=== PATIENT | male | born 1990 | race Caucasian/White ===

== ENCOUNTER 2016-11-24 07:45 | Emergency (ER) | payer BC ==
[2016-11-24 08:01] VITALS: BP 150/103
--- NOTE | 2016-11-24 08:17 | EDM.PDOC ---
ED HISTORY OF PRESENT ILLNESS - General Chief Complaint: Respiratory Problem Stated Complaint: COUGHING UP BLOOD Time Seen by Provider: 11/24/16 08:12 Source of Information: Reports: Patient History Limitations: Reports: No limitations - History of Present Illness INITIAL COMMENTS - FREE TEXT/NARRATIVE: 25-year-old male presents the ED with paroxysmal cough with green-yellow sputum x2 weeks. Associated intermittent low-grade fever no chills. Appetite remains fair. Of concern to him is that on 2 occasions note noted fresh blood streaking the sputum at times x2 in the last 2 weeks. One was last night again. Initially he felt very nasally congested but he feels that broke up last weekend it is improving. He smokes one cigarette a day. No history of asthma. No history of travel outside the country. Symptom Onset Date: 11/09/16 Timing/Duration: Reports: Day(s): Severity: moderate Location, General: Reports: chest (Persistent or productive cough.) Quality: Reports: Other (Part 2 is no coughing) Improves with: Reports: None Worsens with: Reports: None Context, General: Denies: Activity, Exercise, Lifting, Sick contact, Trauma, Other Associated Symptoms (General): Reports: cough, cough w sputum (Vitamins green- yellow but has had a little bit of red blood streaks as well.), fever/chills, malaise, shortness of breath. Denies: diaphoresis, headaches, loss of appetite , nausea/vomiting, rash, seizure, syncope, weakness Treatments [employer]: Reports: Other (see below) - Related Data Allergies/ADRs: Allergies Allergy/AdvReac Type Severity Reaction Status Date / Time No Known Allergies Allergy Verified 11/24/16 07:56 Home Meds: Home Meds Levofloxacin [Levaquin] 500 mg PO Q24H #8 tablet 11/24/16 [Rx] Omeprazole 20 mg PO DAILY 11/24/16 [History] Past Medical History Cardiovascular History: Reports: Hypertension Gastrointestinal History: Reports: GERD Social & Family History - Tobacco Use Smoking Status *Q: Current Every Day Smoker Years of Tobacco use: 10 Packs/Tins Daily: 0.1 Used Tobacco, but Quit: No Second Hand Smoke Exposure: No - Caffeine Use Caffeine Use: Reports: Coffee - Recreational Drug Use Recreational Drug Use: No - Living Situation & Occupation Living situation: Reports: single, with significant other Occupation: employed ED ROS GENERAL - Review of Systems Review Of Systems: See Below Constitutional: Reports: malaise, weakness, fatigue. Denies: fever, chills, decreased appetite, weight loss HEENT: Reports: Sinus problem. Denies: Throat pain, Throat swelling Respiratory: Reports: Shortness of Breath, Cough, Sputum, Hemoptysis (Green- yellow [place] cyst noted x2 by the patient the last 2 weeks.). Denies: Wheezing (On hard exertion.), Pleuritic Chest Pain Cardiovascular: Reports: No symptoms Endocrine: Reports: no symptoms GI/Abdominal: Reports: No symptoms : Reports: no symptoms Musculoskeletal: Reports: no symptoms Skin: Reports: no symptoms Neurological: Reports: No Symptoms Psychiatric: Reports: No symptoms Hematologic/Lymphatic: Reports: no symptoms Immunologic: Reports: no symptoms ED EXAM, GENERAL - Physical Exam Exam: See Below Exam Limited By: No limitations General Appearance: alert, WD/WN, no apparent distress Eye Exam: bilateral eye: normal inspection Ears: normal TMs Nose: normal inspection, other (Whitish debris left medial septum without any active bleeding or ulcerations.) Throat/Mouth: Normal inspection, Normal lips, Normal teeth, Normal oropharynx Head: atraumatic, normocephalic Neck: normal inspection, supple, non-tender, full range of motion. No: lymphadenopathy (L), lymphadenopathy (R) Respiratory/Chest: no respiratory distress, lungs clear, normal breath sounds, no accessory muscle use, chest non-tender, other (Lower lung rod are clear. She transmitted sounds from the upper respiratory tree with productive sounding cough.) Cardiovascular: normal peripheral pulses, regular rate, rhythm, no edema, no gallop, no murmur Peripheral Pulses: 3+: posterior tibial (L), posterior tibial (R), dorsalis pedis (L), dorsalis pedis (R) GI/Abdominal: normal bowel sounds, soft, non tender, no organomegaly, no distention Extremities: normal inspection, normal range of motion, non-tender, normal capillary refill Neurological: oriented, CN II-XII intact, normal cognition Psychiatric: normal affect, normal mood Skin Exam: Warm, Dry, Intact, Normal color, No rash Course - Vital Signs Last Recorded V/S: Last Vital Signs Temp 36.8 C 11/24/16 07:52 Pulse 100 11/24/16 07:52 Resp 20 05/04/17 07:52 BP 150/103 H 11/24/16 08:01 Pulse Ox 100 11/24/16 07:52 - Orders/Labs/Meds Orders: Active Orders 24 hr Category Date Time Status Chest 2V [CR] Stat Exams 11/24/16 08:10 Ordered - Radiology Interpretation Free Text/Narrative:: 25-year-old male presents the ED for evaluation of paroxysmal productive cough green-yellow sputum which has been strict on a couple of occasions by prior white blood over the last 2 weeks. Perhaps intermittent low-grade fever. No diaphoresis no night sweats. No travel outside the country. No chest pain. Examination reveals resolving sinusitis with a bit of postnasal drip. Test is clear postage percussion. He does have a very paroxysmal productive cough compatible with bronchitis however. Plan to be chest x-ray to be obtained - Re-Assessments/Exams Free Text/Narrative Re-Assessment/Exam: 11/24/16 08:28 2 view chest x-rays within normal limits. Diagnosis is bronchitis. Treat with Levaquin 500 mg once daily for the next 8 days to clear up infection. Departure - Departure Time of Disposition: 08:30 Disposition: Home, Self-Care 01 Condition: fair Clinical Impression: Bronchitis Prescriptions: Levofloxacin [Levaquin] 500 mg PO Q24H #8 tablet Referrals: PCP,None [Primary Care Provider] - Forms: ED Department Discharge Additional Instructions: Evaluation in the emergency department today in regards to persistent productive yellow green sputum with coughing mixed with streaks of blood on at least 2 occasions. Associated resolving sinusitis. Two-view chest x-ray carried out and it proved to be within normal limits showing no lesions or evidence of pneumonia. Diagnosis is bronchitis. Suggested treatment to be antibiotic Levaquin 500 mg once daily for the next 8 days to clear up infection. - My Orders Last 24 Hours: My Active Orders 11/24/16 08:10 Chest 2V [CR] Stat - Assessment/Plan Last 24 Hours: My Active Orders 11/24/16 08:10 Chest 2V [CR] Stat
--- NOTE | 2016-11-24 10:28 | CR ---
Chest: Two views of the chest were obtained. Comparison: No previous study. Heart size and mediastinum are normal. Lungs are clear. Bony structures appear within normal limits for the patient's age. Impression: 1. Nothing acute is identified on two-view chest x-ray. Diagnostic code #1
== END 2016-11-24 08:42 | disposition home or self-care (01) ==
LOC: JD.ED 07:45
DX: J40 Bronchitis, not specified as acute or chronic (principal); I10 Essential (primary) hypertension; K21.9 Gastro-esophageal reflux disease without esophagitis; F17.210 Nicotine dependence, cigarettes, uncomplicated; Z79.899 Other long term (current) drug therapy
CPT/HCPCS: 71020; 71020-26; 99283; 99284